=== PATIENT | male | born 1945 | race Caucasian/White ===

== ENCOUNTER 2025-04-26 10:04 | Day surgery (SDC) | payer MEDICARE, SELFPAY ==
[2025-04-26] VITALS (10 sets, daily range): BP systolic 117–167; BP diastolic 57–106; BMI 37.6
[2025-04-26 10:48] LABS: Glucose - Point of Care 188 mg/dl (70-99)
--- NOTE | 2025-04-26 11:03 | W.ICD.CONTRA ---
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
-
History of MS?: No
LV Function
Left ventricular function study result?: Ejection Fraction </= 35%
ACEI/ARB/ARNI
Patient already on ACEI/ARB/ARNI: Yes
Beta-Nicholas
Patient already on Beta Nicholas: Yes
--- NOTE | 2025-04-26 13:29 | ITS.CL.ICD ---
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
Implantable Cardioverter Defibrillator
Procedure Report:
Date of Procedure: April 26, 2025
Patient : [id number]
Procedures: Single-chamber ICD implant
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
papillary muscles. Patient's ejection fraction did transiently recover although recently has had an increase in PVCs and NSVT up to 15 beats with a depressed ejection fraction on guideline based medical therapy.
Implants:
Pulse Generator: [employer]!; Model# [id number]; Serial#�[id number]
Right Ventricular Lead: [employer]; Model# [id number]; Serial# [id number]
Prior to procedure we ran recording strips for the patient's multifocal PVCs. 3 distinct morphologies were noted in the preoperative state before anesthesia. #1 right bundle left inferior axis basal LV morphology chosen site 10-12, #2 left bundle
left inferior axis site Janie 7 9, and #3 right bundle left superior axis suggesting a left posterior fascicular site of origin.
Technique: The patient was prepped and draped in the usual fashion. Local anesthetic was applied to the left prepectoral subcutaneous tissue. A 4 inch incision was made. The left axillary vein was accessed��without difficulty. A subcutaneous pocket
was CREATED. Hemostasis was excellent. The right ventricular lead was placed at the right ventricular apex. 10 volt pacing did not capture the diaphragm. The leads were secured to the pectoralis muscle and fascia. The leads were appropriately
attached to the device. The pocket was irrigated with antibiotic solution. The device and leads were placed in the pocket and the device was secured to pectoralis muscle and facia. The incision was closed with absorbable sutures. The estimated blood
loss was minimal. There were no complications. Device based testing was performed as described below. IV contrast total: 5 cc.
System Analysis:
RV lead: R: 7.3 mV with good positive current of injury throughout implant; Threshold: 0.5 V @ 0.5 ms; Impedance: 532 ohms.
Final Programming: Tachy: VT/VF: 171�200; monitor at 150 bpm. NID was extended to 32 beats in the VT zone given up to 15 beats of asymptomatic ventricular tachycardia in the outpatient setting
Seth: VVI 50
Conclusion: Uncomplicated single-chamber ICD implant.
Recommendation: Routine post ICD care.
cc: Dr. Evert Jaime
[2025-04-26 14:13] LABS: Glucose - Point of Care 131 mg/dl (70-99)
[2025-04-26] MEDS: TYLENOL 650 MG PO (15:06)
[2025-04-26] MEDS: ANCEF 5 IV (17:43)
== END 2025-04-26 17:58 | disposition home or self-care (01) ==
LOC: CATH 10:04
PROVIDERS: ATTENDING PHYSICIAN Internal Medicine Cardiovascular Disease; FAMILY PHYSICIAN Nurse Practitioner; OTHER PHYSICIAN Internal Medicine Cardiovascular Disease
DX: I25.5 Ischemic cardiomyopathy (principal); I49.3 Ventricular premature depolarization; I47.20 Ventricular tachycardia, unspecified; R55 Syncope and collapse; R06.02 Shortness of breath; I25.10 Atherosclerotic heart disease of native coronary artery without angina pectoris; Z79.82 Long term (current) use of aspirin; Z79.85 Long-term (current) use of injectable non-insulin antidiabetic drugs; Z79.4 Long term (current) use of insulin
CPT/HCPCS: 33249; 71045; 82962; 93005; C1722; C1777; C1894; Q9967